=== PATIENT | female | born 1965 | race African-American/Black ===

== ENCOUNTER 2016-07-23 04:05 | Emergency (ER) | payer OTHER ==
[~2016-07-23] VITALS: Ht 165.1 cm; Wt 110.0 kg
[~2016-07-23 04:05] MED LIST: GLUCTAB OR; LAMO25TA OR; LISI-360 PO; LORT5TAB PO; MAXA10TA2 PO; NOVO7030P2 SQ; NYST100010 EX; OMEP20TA OR; TEMA30CA PO; [UNRECOGNIZED DRUG - CODE] PO
[2016-07-23 04:08] VITALS: BP 120/62; PULSE 106; RESP 16; TEMP 101.1; O2SAT 100
[2016-07-23 04:17] VITALS: BP 109/55; PULSE 119; RESP 18; O2SAT 97
[2016-07-23] MEDS ORDERED: SODIUM CHLOR 0.9% 1000 ML INJ 1,000 ML IV ONE (04:30)
[2016-07-23] MEDS ORDERED: KETOROLAC TROMETHAMINE 30 MG/ML (IVP) VIAL IV PUSH ONE (04:30)
[2016-07-23] MEDS ORDERED: PROCHLORPERAZINE INJ 10 MG/2 ML VIAL IVS ONE (04:30)
[2016-07-23] MEDS ORDERED: diphenhydrAMINE HCL 50 MG/ML VIAL IV PUSH ONE (04:30)
--- NOTE | 2016-07-23 04:43 | PD ---
HPI Chief Complaint: Headache Time Seen by Provider: 04:16 Travel History International Travel<30 days: No Contact w/Intl Traveler<30days: No Traveled to known affect area: No History of Present Illness HPI 50-year-old woman presents to the emergency department complaining of headache and body aches fever nausea and a little bit of cough. Symptoms ongoing for the past couple days. She has a history of migraines but states this feels a little bit different than her typical migraines. She had nausea but no vomiting. No urinary symptoms. She has had some loose stools. No other complaints. History Past Medical History Narrative Medical Headache Tetanus Vaccination: Unknown Influenza Vaccination: No Social History Alcohol Use: No Tobacco Use: No Allergies-Medications (Allergen,Severity, Reaction): Coded Allergies: Imitrex (Unverified Allergy, Severe, 08/14/12) Topamax (Unverified Allergy, Severe, Swelling, 08/14/12) SWELLING IN THROAT Reported Meds & Prescriptions Reported Meds & Active Scripts Active Review of Systems Except as stated in HPI: all other systems reviewed are Neg Physical Exam Narrative GENERAL: Well-appearing 51-year-old woman, no acute distress. SKIN: Warm and dry. NECK: Trachea midline. No JVD. CARDIOVASCULAR: Heart rate is a little bit fast. No murmurs. RESPIRATORY: No accessory muscle use. Clear to auscultation. Breath sounds equal bilaterally. GASTROINTESTINAL: Abdomen soft, non-tender, nondistended. Hepatic and splenic margins not palpable. MUSCULOSKELETAL: No obvious deformities. Data Data Last Documented VS Vital Signs Date Time Temp Pulse Resp B/P Pulse Ox O2 Delivery O2 Flow Rate FiO2 07/23/16 04:20 Room Air 07/23/16 04:17 119 18 109/55 97 07/23/16 04:08 101.1 Orders Complete Blood Count With Diff (07/23/16 04:27) Comprehensive Metabolic Panel (07/23/16 04:27) Lactic Acid (07/23/16 04:27) Iv Access Insert/Monitor (07/23/16 04:27) Influenzae A/B Antigen (07/23/16 04:27) Sodium Chlor 0.9% 1000 Ml Inj (Ns 1000 M (07/23/16 04:30) Prochlorperazine Inj (Compazine Inj) (07/23/16 04:30) Diphenhydramine Inj (Benadryl Inj) (07/23/16 04:30) Ketorolac Inj (Toradol Inj) (07/23/16 04:30) Labs Laboratory Tests Test 07/23/16 04:30 White Blood Count 8.4 TH/MM3 Red Blood Count 4.03 MIL/MM3 Hemoglobin 11.5 GM/DL Hematocrit 34.0 % Mean Corpuscular Volume 84.3 FL Mean Corpuscular Hemoglobin 28.4 PG Mean Corpuscular Hemoglobin 33.7 % Concent Red Cell Distribution Width 12.7 % Platelet Count 261 TH/MM3 Mean Platelet Volume 9.2 FL Neutrophils (%) (Auto) 85.6 % Lymphocytes (%) (Auto) 5.2 % Monocytes (%) (Auto) 5.5 % Eosinophils (%) (Auto) 3.6 % Basophils (%) (Auto) 0.1 % Neutrophils # (Auto) 7.2 TH/MM3 Lymphocytes # (Auto) 0.4 TH/MM3 Monocytes # (Auto) 0.5 TH/MM3 Eosinophils # (Auto) 0.3 TH/MM3 Basophils # (Auto) 0.0 TH/MM3 CBC Comment DIFF FINAL Differential Comment Sodium Level 137 MEQ/L Potassium Level 3.8 MEQ/L Chloride Level 104 MEQ/L Carbon Dioxide Level 23.6 MEQ/L Anion Gap 9 MEQ/L Blood Urea Nitrogen 17 MG/DL Creatinine 1.46 MG/DL Estimat Glomerular Filtration 45 ML/MIN Rate Random Glucose 182 MG/DL Lactic Acid Level 2.3 mmol/L Calcium Level 8.0 MG/DL Total Bilirubin 0.4 MG/DL Aspartate Amino Transf 10 U/L (AST/SGOT) Alanine Aminotransferase 14 U/L (ALT/SGPT) Alkaline Phosphatase 105 U/L Total Protein 7.1 GM/DL Albumin 3.0 GM/DL [facility] Medical Decision Making Medical Screen Exam Complete: Yes Emergency Medical Condition: Yes Interpretation(s) LABS: CBC remarkable for mild anemia. CMP unremarkable, mildly elevated creatinine Lactate 2.3 Influenza negative Differential Diagnosis Flu, URI, migraine, meningitis, encephalitis, other Narrative Course Medical decision making 51-year-old woman with headache fever bodyaches nausea with some diarrhea and a little bit of cough. She seems to have a viral URI. May be triggering her migraine symptoms. I don't think she has meningitis or encephalitis. Recommend supportive treatment. We'll check screening labs. 5:30 AM: Patient feels much better. Pain gone. Recommend supportive treatment. Diagnosis Primary Impression: Headache Qualified Code: R51 - Acute nonintractable headache, unspecified headache type Additional Impression: URI (upper respiratory infection) Qualified Code: J06.9 - Viral upper respiratory tract infection Additional Instructions: Drink plenty of fluids to stay well-hydrated. Follow-up with your primary doctor if you are not completely well on Tuesday. Return to the emergency department for any worsening headache, or any other new or worsening symptoms. Med/Other Pt SpecificInfo: No Change to Meds Disposition: 01 DISCHARGE HOME Condition: Stable Jonathan Olivo MD Jul 23, 2016 04:43
[2016-07-23 04:54] LABS: AUTOMATED NEUTROPHIL # 7.2 TH/MM3 (1.8-7.7); BASOPHIL % 0.1 % (0.0-2.0); EOSINOPHIL # 0.3 TH/MM3 (0-0.4); EOSINOPHIL % 3.6 % (0.0-4.0); HEMO FLAGS DIFF FINAL; LYMPH % 5.2 % (9.0-44.0); LYMPHOCYTE # 0.4 TH/MM3 (1.0-4.8); MEAN CELL VOLUME 84.3 FL (80.0-100.0); MEAN CORPUSCULAR HEMOGLOBIN 28.4 PG (27.0-34.0); MEAN CORPUSCULAR HGB CONC 33.7 % (32.0-36.0); MONO % 5.5 % (0.0-8.0); NEUT % 85.6 % (16.0-70.0); PLATELET COUNT 261 TH/MM3 (150-450); RED BLOOD COUNT 4.03 MIL/MM3 (4.00-5.30); RED CELL DISTRIBUTION WIDTH 12.7 % (11.6-17.2); WHITE BLOOD COUNT 8.4 TH/MM3 (4.0-11.0)
[2016-07-23 05:23] LABS: ANION GAP 9 MEQ/L (5-15); AST (GOT) 10 U/L (15-37); BICARBONATE 23.6 MEQ/L (21.0-32.0); BLOOD UREA NITROGEN 17 MG/DL (7-18); CHLORIDE 104 MEQ/L (98-107); GLOMERULAR FILTRATION RATE 45 ML/MIN (>89); POTASSIUM 3.8 MEQ/L (3.5-5.1); SODIUM (NA) 137 MEQ/L (136-145)
[2016-07-23 05:27] LABS: ALKALINE PHOSPHATASE 105 U/L (45-117); ALT (GPT) 14 U/L (10-53); TOTAL BILIRUBIN ADULT 0.4 MG/DL (0.2-1.0)
[2016-07-23 05:57] VITALS: RESP 18
== END 2016-07-23 06:16 | disposition home or self-care (01) ==
LOC: NEPC 04:05
DX: R51 Headache (principal); J06.9 Acute upper respiratory infection, unspecified; B97.89 Other viral agents as the cause of diseases classified elsewhere; M79.1 Myalgia; R50.9 Fever, unspecified; R11.0 Nausea; R19.7 Diarrhea, unspecified; R05 Cough; Z86.69 Personal history of other diseases of the nervous system and sense organs
CPT/HCPCS: 80053; 83605; 85025; 87804; 96361; 96374; 96375; 99283; J0780; J1200; J1885; J7030